=== PATIENT | female | born 1995 | race Caucasian/White ===

== ENCOUNTER 2019-09-08 15:30 | Emergency (ER) | payer OTHER ==
--- NOTE | 2019-09-08 15:39 | PDOC ---
Rapid Medical Evaluation Medical Evaluation: 09/08/19 15:37 24 yo F denies pmhx, RHD c/o L wrist pain s/p injury today while roller skating today. denies head injury or any complaints. VSS L wrist swelling A/P: L wrist pain s/p injury L wrist xray patient has been applying ice
[2019-09-08 15:44] VITALS: BP 130/67; PULSE 71; TEMP 98.6; BMI 28.7
--- NOTE | 2019-09-08 16:23 | PDOC ---
History of Present Illness - General Chief Complaint: Injury Stated Complaint: FALL Time Seen by Provider: 09/08/19 15:41 History Source: Patient Exam Limitations: Clinical Condition - History of Present Illness Initial Comments: 09/08/19 16:25 Patient with no significant past medical history present with complaint of left wrist pain status post fall on outstretched hand on the roller skate over an hour ago. Patient denies hitting head or loss of consciousness. Report increased pain with movement of left wrist. Denies previous wrist fracture injury. Patient's mother who is a nurse gave her 2 Aleve and a Tylenol thousand milligrams prior to arrival. Denies any other symptoms Occurred: reports: just prior to arrival Past History - Medical History Allergies/Adverse Reactions: Allergies Allergy/AdvReac Type Severity Reaction Status Date / Time No Known Allergies Allergy Verified 09/08/19 15:39 Home Medications: Ambulatory Orders Ibuprofen 800 mg PO Q8H PRN #20 tablet 09/08/19 COPD: No Psychiatric Problems: Yes (ANXIETY) - Psycho-Social/Smoking History Smoking History: Never smoked Review of Systems - Review of Systems Able to Perform ROS?: Yes Is the patient limited Cambodian proficient: No Constitutional: No: Chills, Fever, Malaise HEENTM: No: Symptoms Reported, See HPI, Eye Pain, Blurred Vision, Tearing, Recent change in vision, Double Vision, Cataracts, Ear Pain, Ocular Prothesis, Ear Discharge, Nose Pain, Nose Congestion, Tinnitus, Nose Bleeding, Hearing Loss, Throat Pain, Throat Swelling, Mouth Pain, Dental Problems, Difficulty Swallowing, Mouth Swelling, Other Respiratory: No: Symptoms reported, See HPI, Cough, Orthopnea, Shortness of Breath, SOB with Exertion, SOB at Rest, Stridor, Wheezing, Productive cough, Hemoptysis, Other Cardiac (ROS): No: Symptoms Reported Musculoskeletal: Yes: Symptoms Reported, See HPI, Joint Pain (left wrist), Joint Swelling (left wrist), Muscle Pain (left wrist) Integumentary: No: Symptoms Reported Neurological: No: Symptoms reported, Paresthesia, Tingling, Weakness All Other Systems: Reviewed and Negative *Physical Exam - Vital Signs Last Vital Signs Temp Pulse Resp BP Pulse Ox 98.6 F 71 18 130/67 98 09/08/19 15:34 09/08/19 15:34 09/08/19 15:34 09/08/19 15:34 09/08/19 15:34 - Physical Exam 09/08/19 16:29 GENERAL: Well developed, well nourished. Awake and alert. No acute distress. PULMONARY: No evidence of respiratory distress. MUSCULOSKELETAL : Moderate tenderness to radial aspect of left wrist with mild localized swelling over radial aspect of left wrist with increased tenderness to left radial aspect with ulnar deviation. No visible deformity SKIN: Warm and dry. Normal capillary refill. Mild localized swelling to radial aspect of left wrist NEUROLOGICAL: Alert, awake, appropriate. No motor deficits in the lower extremities. Gait is normal without ataxia. PSYCHIATRIC: Cooperative. Good eye contact. Appropriate mood and affect. General Appearance: Yes: Nourished, Appropriately Dressed. No: Apparent Distress Medical Decision Making - Medical Decision Making 09/08/19 16:26 Patient with no significant past medical history present with complaint of left wrist pain status post fall on outstretched hand on the [employer] skate over an hour ago. Patient denies hitting head or loss of consciousness. Report increased pain with movement of left wrist. Denies previous wrist fracture injury. Patient's mother who is a nurse gave her 2 Aleve and a Tylenol thousand milligrams prior to arrival. Denies any other symptoms Exam is significant for moderate tenderness with mild localized swelling over radial aspect of left wrist with no visible deformity. Increased tenderness to radial aspect of left wrist with ulnar deviation of left wrist. X-ray of left hand and wrist shows subtle hairline nondisplaced fracture to distal radius. Patient placed in short arm wrist splint. Sling provided to help support left wrist and advised to not use more than 2 days. Patient stable for discharge on Motrin PRN for pain with hand orthopedics follow-up Discharge - Discharge Information Problems reviewed: Yes Clinical Impression/Diagnosis: Radius distal fracture Qualifiers: Encounter type: initial encounter Fracture type: closed Fracture morphology: unspecified fracture morphology Laterality: left Qualified Code(s): S52.502A - Unspecified fracture of the lower end of left radius, initial encounter for closed fracture Condition: Stable Disposition: HOME - Admission No - Additional Discharge Information Prescriptions: Ibuprofen 800 mg PO Q8H PRN #20 tablet PRN Reason: pain - Follow up/Referral Referrals: Toni Lee MD [Staff Physician] - - Patient Discharge Instructions Patient Printed Discharge Instructions: DI for Wrist Fracture Additional Instructions: X-ray of your wrist showed hairline fracture which splint was applied to your wrist. Keep splint on until completed follow-up. Keep left arm elevated to prevent worsening swelling and take prescribed Motrin as needed for pain. Its very important that you follow-up with orthopedics - Post Discharge Activity
== END 2019-09-08 16:25 | disposition home or self-care (01) ==
LOC: JER 15:30
DX: S52.502A Unspecified fracture of the lower end of left radius, initial encounter for closed fracture (principal)
CPT/HCPCS: 73110-TC-LT-FY; 99283-25